=== PATIENT | male | born 1950 | race Caucasian/White ===

== ENCOUNTER → 2021-01-29 14:09 | Outpatient (CLI) | payer MEDICARE, SELFPAY ==
--- NOTE | 2021-01-29 14:32 | DI.MRI.S_ITS ---
PROCEDURE: MR LUMBAR SPINE WO CON INDICATIONS: Family history of epilepsy and other diseases of t TECHNIQUE: Noncontrast sagittal T1 spin echo and T2 fast echo, sagittal STIR, axial T1 and T2 fast spin echo through the lumbar spine. In cases with scoliosis, additional coronal T2 fast spin echo may be performed. COMPARISON: None. FINDINGS: Image quality: Excellent. Alignment and Curvature: There is normal bony alignment. Bone Marrow: Mild reactive endplate changes noted adjacent to the L2-L3 and L4-L5 discs. No acute vertebral body compression fractures. Spinal Cord: Conus medullaris terminates at the L1 level. Visualized cord demonstrates normal signal and size. Paraspinous Soft Tissues: No paravertebral masses. T12-L1: Normal appearance. L1-L2: Normal appearance. L2-L3: Loss of disc signal. Mild, diffuse disc bulge. No central stenosis. Mild left neural foraminal narrowing. No neural compression. L3-L4: Loss of disc signal. Mild, diffuse disc bulge. Mild narrowing of the central canal. Mild bilateral neural foraminal narrowing. No neural compression. L4-L5: Loss of disc signal and slight loss of disc height. Mild, diffuse disc bulge. Mild bilateral facet hypertrophy. Mild narrowing of the central canal. Mild to moderate bilateral neural foraminal narrowing. No neural compression. L5-S1: Disc has a normal appearance. Mild bilateral facet hypertrophy. No central stenosis. No neural foraminal narrowing. No neural compression. IMPRESSION: 1. Multilevel degenerative disc disease. 2. Multilevel facet arthropathy. 3. No severe central canal narrowing. 4. No severe neural foraminal narrowing. 5. No neural compression. Dictated by: Kasandra Faria MD, PhD on 01/29/2021 at 17:46 Approved by: Kasandra Faria MD, PhD on 01/29/2021 at 17:51
== END ==
PROVIDERS: Family Provider Family Medicine; PCP Family Medicine; Referring Provider Family Medicine; Visit Provider Family Medicine
DX: R29.3 Abnormal posture (principal); M47.816 Spondylosis without myelopathy or radiculopathy, lumbar region; M47.817 Spondylosis without myelopathy or radiculopathy, lumbosacral region; M51.36 Other intervertebral disc degeneration, lumbar region; Z82.0 Family history of epilepsy and other diseases of the nervous system
CPT/HCPCS: 72148

== ENCOUNTER → 2021-02-24 13:06 | Outpatient (CLI) | payer MEDICARE, SELFPAY ==
--- NOTE | 2021-02-24 | DI.MRI.S_ITS ---
PROCEDURE: MR HEAD/BRAIN WO CON INDICATIONS: Other amnesia TECHNIQUE: Non-contrast axial T1 spin echo, axial T2 fast spin echo, sagittal and axial FLAIR, coronal T2 fast spin echo, axial gradient echo, axial diffusion and ADC through the brain. COMPARISON: None. FINDINGS: Image quality: Excellent. CSF spaces: Ventricles appear symmetric in size and shape. Basal cisterns are patent. No extra-axial fluid collections. Brain: No intracranial bleeds or mass effects. There is cerebral volume loss for age. There are periventricular and deep white matter chronic small vessel ischemic changes. Brainstem appears normal. Diffusion-weighted images show no acute ischemic insults. No chronic ischemic insults. Normal intravascular flow voids are present. Skull and face: Calvarial bone marrow is normal in signal. Orbits are normal. Sinuses: There is a mucous retention cyst seen within the7 superior medial right maxillary sinus. Mild mucosal thickening is seen within the maxillary sinuses. There is moderate mucosal thickening within the ethmoid air cells. Mild mucosal thickening is seen elsewhere within the paranasal sinuses. No abnormal fluid is seen within the mastoid air cells. IMPRESSION: Unremarkable intracranial study for age, without an imaging explanation found patient's presenting history. Dictated by: Isaías Giordano M.D. on 02/24/2021 at 12:42 Approved by: Isaías Giordano M.D. on 02/24/2021 at 12:44
== END ==
PROVIDERS: Family Provider Family Medicine; PCP Family Medicine; Referring Provider Family Medicine; Visit Provider Family Medicine
DX: R41.3 Other amnesia (principal); R29.3 Abnormal posture; R53.82 Chronic fatigue, unspecified
CPT/HCPCS: 70551

== ENCOUNTER 2021-04-17 11:03 | Day surgery (SDC) | payer MEDICARE, SELFPAY ==
--- NOTE | 2021-04-17 | PATH_ITS ---
[facility] Accession Number: [id number] . 01 Material submitted: . esophagus, E-G Junction - GE JUNCTION . 02 Diagnosis: Gastroesophageal Junction, Biopsies: Squamocolumnar junctional mucosa with specialized intestinal metaplasia, consistent with Villarreal's esophagus. Negative for dysplasia and malignancy. MRV 04/21/2021 1346 Local . 02 Electronically signed: . Mahamed Dong MD, PhD, Pathologist NPI- [id number] . 01 Gross description: . GE JUNCTION: Received in formalin are 2 fragment(s) of keith, soft tissue measuring 0.3 x 0.2 x 0.1 cm to 0.3 x 0.2 x 0.1 cm submitted entirely in 1 cassette(s) /KWESI 04/18/2021 0217 Local . 02 Pathologist provided ICD-10: K22.70 . 02 CPT . 605935 Performed at: 01 [facility] [address] [facility], [place], [place] [id number] MD Josue Lee MD Phone: [phone] Performed at: 02 [facility] [address] [place], [place] [id number] MD Karin Rodríguez MD Phone: [phone]
[2021-04-17 13:25] VITALS: BP 148/94; PULSE 72; RESP 12; TEMP 36.5; O2SAT 100; BMI 21.5
--- NOTE | 2021-04-17 14:32 | PM.HP.1 ---
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 Please refer to the H&P from February 2021 for further details. No interval changes in health. Patient History Medical History GERD (gastroesophageal reflux disease) Obstructive sleep apnea Surgical History History of appendectomy Family & Social History Family History Father Heart disease Grandfather Heart disease Social History: household members spouse Tobacco & Substance use: Smoking Status Never smoker alcohol intake current alcohol intake frequency holiday/special occasion Substance Use Type does not use Meds Home Medications and Allergies Home Medications Medication Instructions Recorded Confirmed Type B12 PO DAILY 03/05/21 History ibuprofen 200 mg tablet 400 mg PO Q8H 03/05/21 04/17/21 History omega-3 fatty acids 1,000 mg 1,000 mg PO DAILY 03/05/21 04/17/21 History capsule (Fish Oil Concentrate) omeprazole 10 mg capsule,delayed 10 mg PO DAILY 03/05/21 04/17/21 History release vitamins A,C,Q-pulv-yynbof 14,320 1 cap PO BID 03/05/21 03/05/21 History unit-226 mg-200 unit capsule (ICaps AREDS) Allergies Allergy/AdvReac Type Severity Reaction Status Date / Time No Known Drug Allergies Allergy Verified 04/17/21 13:21 Exam Vital Signs (past 8 hours): - 04/17/21 13:25 Temperature 97.7 F Pulse Rate 72 Respiratory Rate 12 Blood Pressure 148/94 H Pulse Oximetry 100 Oxygen Delivery Method Room Air Narrative Exam Narrative: Constitutional-he is oriented to person, place and time. No apparent distress Cardiovascular- regular rate, no peripheral edema Pulmonary-unlabored respiratory effort, no audible wheezing Abdominal-soft, non-tender, non-distended Musculoskeletal-no cyanosis or clubbing Neurological-nonfocal, normal strength throughout, Skin-warm and dry Assessment & Plan Assessment and plan (1) Barretts esophagus: Qualifiers: Villarreal's esophagus type: without dysplasia Qualified Code(s): K22.70 - Villarreal's esophagus without dysplasia Status: Acute Assessment & Plan narrative: 70-year-old man history of Villarreal's esophagus here for routine screening surveillance esophagoduodenoscopy. Technical details of the procedure were discussed with the patient. Procedural risks including perioperative complications bleeding, infection, missed diagnosis, intestinal perforation were discussed. His questions have been answered he is in agreement with this plan Time Spent With Patient Critical Care time: I spent a total of [] minutes of critical care time on this patient's care today; this time is exclusive of procedural time.
[2021-04-17] MEDS: LIDOCAINE 4% SOLN 50 ML 20 ML TOP (14:40)
[2021-04-17] MEDS: fentaNYL 250 MCG/5 ML INJ IV (14:42)
[2021-04-17] MEDS: MIDAZOLAM 5 MG/5 ML VIAL IV (14:47)
--- NOTE | 2021-04-17 14:53 | PM.OP.EGD ---
Operative Date/Time/Diagnoses Date of procedure: 04/17/21 Time of procedure: 14:53 Pre-op diagnosis: History of Villarreal's Post-op diagnosis: same Procedure & Clinicians Study performed: Esophagoduodenoscopy Same procedure as scheduled: Yes Indications: History of Villarreal's-surveillance Surgeon: Heath Pérez Procedure Notes Procedure in detail: Patient placed in left lateral decubitus position. Time out was performed. Procedural sedation was administered with Versed and Fentanyl. A bite block was placed. the scope was inserted into the mouth and advanced through the esophagus and into the stomach. The pylorus was intubated and the duodenum was normal to the 2nd portion. The scope was retroflexed within the stomach and there was a small hiatal hernia. No ulcers, or gastritis. The scope was withdrawn into the esophagus the Z line was seen at 35 cm from the incisions. There was no Villarreal's esophagitis or masses or strictures. Random biopsies of the GE junction were performed with the forceps. Stomach was desufflated and scope removed. Patient tolerated procedure well. Specimen(s): other (GE junction) Complications: none Impression: Normal esophagoduodenoscopy Post-procedure Plan for aftercare: Will follow up with biopsy results Disposition: same day surgery
[2021-04-17 14:56] VITALS: BP 110/72; PULSE 67; RESP 12; TEMP 36.4; O2SAT 93
[2021-04-17 15:00] VITALS: BP 104/68; PULSE 67; RESP 10; O2SAT 94
[2021-04-17 15:05] VITALS: BP 106/76; PULSE 70; RESP 12; O2SAT 93
[2021-04-17 15:20] VITALS: BP 116/85; PULSE 71; RESP 12; O2SAT 98
== END 2021-04-17 15:45 | disposition home or self-care (01) ==
PROVIDERS: Family Provider Family Medicine; PCP Family Medicine; Referring Provider Surgery; Visit Provider Surgery
PROC: 0DJ08ZZ Inspection of Upper Intestinal Tract, Via Natural or Artificial Opening Endoscopic (ICD-10-PCS; CPT 43235; principal; 2021-04-17 14:30)
DX: K22.70 Barrett's esophagus without dysplasia (principal); K21.9 Gastro-esophageal reflux disease without esophagitis; G47.33 Obstructive sleep apnea (adult) (pediatric); K44.9 Diaphragmatic hernia without obstruction or gangrene
CPT/HCPCS: 43239; J2250; J3010